=== PATIENT | male | born 1970 | race Caucasian/White ===

== ENCOUNTER 2022-12-24 10:46 | Outpatient (CLI) | payer BC | END 2022-12-24 10:47 | disposition home or self-care (01) | LOC: SCSRAD 10:46 | PROVIDERS: ATTEND Nurse Practitioner Family | DX: R06.02 Shortness of breath (principal); J90 Pleural effusion, not elsewhere classified | CPT/HCPCS: 71046 ==

== ENCOUNTER 2023-01-08 11:12 | Outpatient (CLI) | payer BC | END 2023-01-08 11:13 | disposition home or self-care (01) | LOC: RAD 11:12 | PROVIDERS: ATTEND Internal Medicine Hematology & Oncology | DX: I82.409 Acute embolism and thrombosis of unspecified deep veins of unspecified lower extremity (principal); J90 Pleural effusion, not elsewhere classified | CPT/HCPCS: 71046 ==